=== PATIENT | female | born 1940 | race Caucasian/White ===

== ENCOUNTER 2017-06-16 08:48 | Outpatient (CLI) | payer MEDICARE, BC ==
[~2017-06-16 08:48] MED LIST: ALT5C PO; AMLO10TA4 PO; ATOR20TA66 PO; GLIM1TAB PO; INSU300I SQ; LINA5TAB4 PO; METF10002 PO
== END 2017-06-16 23:59 | disposition home or self-care (01) ==
LOC: RAD 08:48
PROVIDERS: ATTEND Family Medicine
DX: R10.9 Unspecified abdominal pain (principal); I10 Essential (primary) hypertension; E11.9 Type 2 diabetes mellitus without complications
CPT/HCPCS: 76700

== ENCOUNTER 2017-07-25 08:07 | Outpatient (CLI) | payer MEDICARE, BC ==
[~2017-07-25 08:07] MED LIST changes: -ALT5C PO; +RAMI5CAP PO
== END 2017-07-25 23:59 | disposition home or self-care (01) ==
LOC: DIABETIC 08:07
PROVIDERS: ATTEND Specialist
DX: E11.9 Type 2 diabetes mellitus without complications (principal)
CPT/HCPCS: G0108

== ENCOUNTER 2017-08-17 16:17 | Inpatient (IN) | payer MEDICARE, BC ==
[~2017-08-17] VITALS: Ht 162.6 cm; Wt 62.7 kg
[2017-08-17] MEDS ORDERED: normal saline 1000ML IV soln IVB ONE (17:20)
[2017-08-17] MEDS ORDERED: LIDOcaine 1.5% w/epinephrine 1:200,000 5ml ampul IJ ONE (17:25)
[2017-08-17 17:38] LABS: BASOPHILS # (AUTO) 0.1 X10'3 (0-0.2); BASOPHILS % (AUTO) 0.3 % (0-1); EOSINOPHILS # (AUTO) 0.2 X10'3 (0-0.9); EOSINOPHILS % (AUTO) 1.2 % (0-6); HEMATOCRIT 38.4 % (35.0-45.0); HEMOGLOBIN 13.3 g/dl (12.0-16.0); LYMPHOCYTES # (AUTO) 1.1 X10'3 (1.1-4.8); LYMPHOCYTES % (AUTO) 5.5 % (21-51); MEAN CORPUSCULAR HEMOGLOBIN 30.9 PG (27.0-31.0); MEAN CORPUSCULAR HGB CONC 34.6 % (33.0-36.5); MEAN CORPUSCULAR VOLUME 89.4 FL (78-98); MEAN PLATELET VOLUME 8.2 FL (7.4-10.4); PLATELET COUNT 320 X10'3 (140-440); RED BLOOD COUNT 4.29 X10'6 (4.20-5.60); RED CELL DISTRIBUTION WIDTH 13.4 % (11.5-14.5); WHITE BLOOD COUNT 19.3 X10'3 (4.5-11.0)
[2017-08-17] MEDS ORDERED: ondansetron/PF 4mg/2ml inj IV ONE (17:50)
[2017-08-17 18:01] LABS: ALANINE AMINOTRANSFERASE 42 U/L (12-78); ALBUMIN 3.6 G/DL (3.4-5.0); ALKALINE PHOSPHATASE 74 IU/L (46-116); ANION GAP 10 (8-16); ASPARTATE AMINO TRANSFERASE 29 U/L (10-37); BILIRUBIN,TOTAL 0.3 MG/DL (0.1-1.0); BLOOD UREA NITROGEN 21 MG/DL (7-18); BUN/CREATININE RATIO 15.8 (6.6-38.0); CALCIUM 9.2 MG/DL (8.5-10.1); CHLORIDE 100 MMOL/L (99-107); CREATININE 1.33 MG/DL (0.40-0.90); GLUCOSE 175 MG/DL (70-104); SODIUM 138 MMOL/L (135-145); TOTAL CARBON DIOXIDE 28.5 MMOL/L (24-32); TOTAL PROTEIN 7.3 G/DL (6.4-8.2); eGFR 39 ML/MIN
[2017-08-17] MEDS ORDERED: meclizine 12.5mg tablet PO ONE (18:05)
[2017-08-17] MEDS ORDERED: proCHLORperazine 10 MG/2 ml inj IV ONE (18:30)
[2017-08-17 18:43] LABS: TOTAL CELLS COUNTED 100
[2017-08-17 18:44] LABS: PLATELET ESTIMATE NORMAL
[2017-08-17] MEDS ORDERED: HYDR12.5 PO (19:57)
[2017-08-17] MEDS ORDERED: HUM7525 SQ (19:57)
[2017-08-17 22:06] LABS: UA COLLECTION TYPE STRAIGHT CATH
[2017-08-17 22:07] LABS: CLARITY,URINE CLEAR (Clear); COLOR,URINE STRAW (Yellow); GLUCOSE, URINE 100 mg/dl (Neg); KETONES,URINE 15 mg/dl (Neg); LEUKOCYTE ESTERASE ,URINE NEGATIVE (Neg); NITRITES, URINE NEGATIVE (Neg); OCCULT BLOOD,URINE NEGATIVE (Neg); PROTEIN,URINE NEGATIVE (Neg); UROBILINOGEN,URINE 0.2 E.U/dL (0.2-1.0)
[2017-08-18] MEDS ORDERED: normal saline 1000ml 1,000 ML IV SCH (03:41)
[2017-08-18] MEDS ORDERED: meclizine 12.5mg tablet PO PRN (03:45)
[2017-08-18] MEDS ORDERED: potassium Cl 40MEQ/NS 500ml 500 ML IV PRN ×2 (03:45)
[2017-08-18] MEDS ORDERED: mag hydrox/Alum hydrox/simeth 30ml oral suspension PO PRN (03:45)
[2017-08-18] MEDS ORDERED: ondansetron/PF 4mg/2ml inj IV PRN (03:45)
[2017-08-18] MEDS ORDERED: magnesium 2GM in 50ml NS 50 ML IV PRN (03:45)
[2017-08-18] MEDS ORDERED: magnesium hydroxide 30ml (MOM) UD suspension PO PRN (03:45)
[2017-08-18] MEDS ORDERED: potassium Cl 20 mEq SR tablet PO PRN ×2 (03:45)
[2017-08-18] MEDS ORDERED: magnesium 4gm in 100ml NS 100 ML IV PRN (03:45)
[2017-08-18] MEDS ORDERED: MESSAGE TO PHARMACY PO ONE ×2 (03:50→18:35)
[2017-08-18] MEDS ORDERED: dextrose ORAL solution 15 GM/59 ML bottle PO PRN ×4 (03:50→18:35)
[2017-08-18] MEDS ORDERED: dextrose 50%-water 50ml dispensing syringe IV PRN ×4 (03:50→18:35)
[2017-08-18] MEDS ORDERED: glucagon, human recombinant 1mg kit SUBCUT PRN ×2 (03:50→18:35)
[2017-08-18 06:07] LABS: BASOPHILS % (AUTO) 0.3 % (0-1); EOSINOPHILS # (AUTO) 0.2 X10'3 (0-0.9); EOSINOPHILS % (AUTO) 1.5 % (0-6); HEMATOCRIT 35.6 % (35.0-45.0); HEMOGLOBIN 12.1 g/dl (12.0-16.0); LYMPHOCYTES # (AUTO) 1.2 X10'3 (1.1-4.8); LYMPHOCYTES % (AUTO) 9.2 % (21-51); MEAN CORPUSCULAR HEMOGLOBIN 30.5 PG (27.0-31.0); MEAN CORPUSCULAR VOLUME 89.8 FL (78-98); MEAN PLATELET VOLUME 8.5 FL (7.4-10.4); MONOCYTES # (AUTO) 0.7 X10'3 (0-0.9); MONOCYTES % (AUTO) 5.5 % (2-12); NEUTROPHILS # (AUTO) 10.6 X10'3 (1.8-7.7); NEUTROPHILS % (AUTO) 83.5 % (42-75); PLATELET COUNT 301 X10'3 (140-440); RED BLOOD COUNT 3.96 X10'6 (4.20-5.60); RED CELL DISTRIBUTION WIDTH 13.6 % (11.5-14.5); WHITE BLOOD COUNT 12.6 X10'3 (4.5-11.0)
[2017-08-18 06:30] LABS: ALANINE AMINOTRANSFERASE 36 U/L (12-78); ALBUMIN 3.3 G/DL (3.4-5.0); ALKALINE PHOSPHATASE 74 IU/L (46-116); ANION GAP 9 (8-16); ASPARTATE AMINO TRANSFERASE 26 U/L (10-37); BILIRUBIN,TOTAL 0.3 MG/DL (0.1-1.0); BLOOD UREA NITROGEN 17 MG/DL (7-18); BUN/CREATININE RATIO 17.5 (6.6-38.0); CALCIUM 8.6 MG/DL (8.5-10.1); CHLORIDE 99 MMOL/L (99-107); CHOL/HDL RATIO 1.9 (0.00-4.99); CHOLESTEROL 144 MG/DL (0-200); CREATININE 0.97 MG/DL (0.40-0.90); GLUCOSE 287 MG/DL (70-104); HDL CHOLESTEROL 75 MG/DL (35-60); LDL CHOLESTEROL 58 MG/DL (50-100); POTASSIUM 4.2 MMOL/L (3.5-5.1); SODIUM 135 MMOL/L (135-145); TOTAL CARBON DIOXIDE 27.2 MMOL/L (24-32); TOTAL PROTEIN 6.7 G/DL (6.4-8.2); TRIGLYCERIDES 31 MG/DL (20-135); eGFR 56 ML/MIN
[2017-08-18 07:04] LABS: HEMOGLOBIN A1C 8.2 % (4.5-6.2)
[2017-08-18] MEDS ORDERED: HYDROchlorothiazide 12.5mg capsule PO SCH (08:00)
[2017-08-18] MEDS: K and/or MAG REPLACEMENT MC SCH (08:00)
[2017-08-18] MEDS ORDERED: atorvastatin 20mg tablet PO SCH ×2 (08:00→08:19)
[2017-08-18] MEDS ORDERED: RAMIPRIL 5 MG PO SCH (08:00)
[2017-08-18] MEDS: enoxaparin 40mg/0.4ml syringe SQ SCH (08:32)
[2017-08-18 12:45] VITALS: BP 168/89
[2017-08-18] MEDS: acetaminophen 325mg tablet PO PRN (13:30)
[2017-08-18] MEDS: insulin Lispro (HumaLOG) vial - multi-dose SQ SCH ×2 (14:31→19:58)
[2017-08-18 16:45] VITALS: BP 130/68
[2017-08-18 17:00] VITALS: BP_SYST 130; BP_SYST 160; BP_SYST 177; BP_DIAS 68; BP_DIAS 77; BP_DIAS 83
[2017-08-18 17:50] VITALS: BP 194/84
[2017-08-18] MEDS ORDERED: insulin Lispro (HumaLOG) vial - multi-dose SQ SCH (18:35)
[2017-08-18 20:00] VITALS: BP_SYST 169; BP_SYST 170; BP_SYST 176; BP_DIAS 79; BP_DIAS 83
[2017-08-18] MEDS: metoprolol tartrate 12.5mg (1/2 tablet) PO SCH (20:07)
[2017-08-18] MEDS ORDERED: insulin glargine (Lantus) pen - multi-dose SQ SCH ×2 (21:00)
[2017-08-18 22:00] VITALS: BP 163/88
[2017-08-19] MEDS: acetaminophen 325mg tablet PO PRN ×2 (01:29→07:49)
[2017-08-19 06:00] VITALS: BP 141/69
[2017-08-19 06:48] LABS: BASOPHILS # (AUTO) 0.1 X10'3 (0-0.2); BASOPHILS % (AUTO) 0.7 % (0-1); EOSINOPHILS # (AUTO) 0.1 X10'3 (0-0.9); EOSINOPHILS % (AUTO) 1.7 % (0-6); HEMATOCRIT 37.4 % (35.0-45.0); LYMPHOCYTES # (AUTO) 1.9 X10'3 (1.1-4.8); MEAN CORPUSCULAR HEMOGLOBIN 30.9 PG (27.0-31.0); MEAN CORPUSCULAR HGB CONC 34.9 % (33.0-36.5); MEAN CORPUSCULAR VOLUME 88.5 FL (78-98); MEAN PLATELET VOLUME 8.3 FL (7.4-10.4); MONOCYTES # (AUTO) 0.7 X10'3 (0-0.9); MONOCYTES % (AUTO) 8.7 % (2-12); NEUTROPHILS % (AUTO) 63.9 % (42-75); PLATELET COUNT 321 X10'3 (140-440); RED BLOOD COUNT 4.23 X10'6 (4.20-5.60); RED CELL DISTRIBUTION WIDTH 13.2 % (11.5-14.5); WHITE BLOOD COUNT 7.8 X10'3 (4.5-11.0)
[2017-08-19 06:59] LABS: ALBUMIN 3.3 G/DL (3.4-5.0); ANION GAP 9 (8-16); BLOOD UREA NITROGEN 14 MG/DL (7-18); BUN/CREATININE RATIO 14.7 (6.6-38.0); CHLORIDE 102 MMOL/L (99-107); CREATININE 0.95 MG/DL (0.40-0.90); GLUCOSE 70 MG/DL (70-104); MAGNESIUM 1.9 MG/DL (1.5-2.4); POTASSIUM 3.7 MMOL/L (3.5-5.1); SODIUM 139 MMOL/L (135-145); eGFR 58 ML/MIN
[2017-08-19] MEDS: metoprolol tartrate 12.5mg (1/2 tablet) PO SCH (07:38)
[2017-08-19] MEDS: enoxaparin 40mg/0.4ml syringe SQ SCH (07:39)
[2017-08-19 08:00] VITALS: BP_SYST 133; BP_SYST 137; BP_DIAS 73; BP_DIAS 86
[2017-08-19] MEDS: K and/or MAG REPLACEMENT MC SCH (08:00)
[2017-08-19] MEDS ORDERED: lisinopril 10 MG tablet PO SCH (08:17)
[2017-08-19] MEDS: insulin Lispro (HumaLOG) vial - multi-dose SQ SCH ×2 (09:32→14:25)
[2017-08-19 10:00] VITALS: BP 170/78
[2017-08-19] MEDS ORDERED: LORazepam 2 mg/ml vial IV ONE (13:25)
[2017-08-19] MEDS ORDERED: METO25TA6 PO (17:44)
[2017-08-19] MEDS ORDERED: ALPR-623 PO (17:44)
== END 2017-08-19 18:25 | disposition home or self-care (01) | DRG 40 ==
LOC: ER 16:17 → ED HOLD 08-18 03:41 → S STAY 08-18 13:01 → ORTHO 4S 08-18 18:02
PROVIDERS: ADMIT Family Medicine; ATTEND Family Medicine
PROC: 0JQ00ZZ Repair Scalp Subcutaneous Tissue and Fascia, Open Approach (ICD-10-PCS; principal; 2017-08-17)
PROC: 4A10X4Z Monitoring of Central Nervous Electrical Activity, External Approach (ICD-10-PCS; 2017-08-19)
DX: S06.0X9A Concussion with loss of consciousness of unspecified duration, initial encounter (principal); N17.0 Acute kidney failure with tubular necrosis; E11.649 Type 2 diabetes mellitus with hypoglycemia without coma; E11.22 Type 2 diabetes mellitus with diabetic chronic kidney disease; S01.01XA Laceration without foreign body of scalp, initial encounter; D72.829 Elevated white blood cell count, unspecified; E78.00 Pure hypercholesterolemia, unspecified; W18.39XA Other fall on same level, initial encounter; E78.5 Hyperlipidemia, unspecified; R00.0 Tachycardia, unspecified; F41.1 Generalized anxiety disorder; I12.9 Hypertensive chronic kidney disease with stage 1 through stage 4 chronic kidney disease, or unspecified chronic kidney disease; M47.812 Spondylosis without myelopathy or radiculopathy, cervical region; N18.9 Chronic kidney disease, unspecified; Z79.4 Long term (current) use of insulin; Z82.49 Family history of ischemic heart disease and other diseases of the circulatory system; Z87.820 Personal history of traumatic brain injury; Z87.891 Personal history of nicotine dependence; Z90.710 Acquired absence of both cervix and uterus; Z88.2 Allergy status to sulfonamides; Y93.89 Activity, other specified; Y92.89 Other specified places as the place of occurrence of the external cause; Y99.8 Other external cause status; Z79.899 Other long term (current) drug therapy
CPT/HCPCS: 12002; 36415; 70450; 70551; 71045; 72125; 80048; 80053; 80061; 81003; 82948; 83036; 83735; 84484; 85025; 87070; 93005; 93306; 93880; 95816; 96361; 96374; 96375; 97116; 97161; 97530; 99285; A6449; J0780; J1650; J1815; J2060; J2405; J3490; J7030; J8597

== ENCOUNTER 2017-11-01 00:34 | Outpatient (CLI) | payer MEDICARE, BC ==
[~2017-11-01 00:34] MED LIST changes: -AMLO10TA4 PO; -GLIM1TAB PO; +HUM7525 SQ; -LINA5TAB4 PO; -METF10002 PO; +METO25TA6 PO
== END 2017-11-01 23:59 | disposition home or self-care (01) ==
LOC: DIABETIC 00:34
PROVIDERS: ATTEND Specialist
DX: E11.9 Type 2 diabetes mellitus without complications (principal); I10 Essential (primary) hypertension
CPT/HCPCS: G0108

== ENCOUNTER 2018-02-10 04:28 | Outpatient (CLI) | payer MEDICARE, BC ==
[~2018-02-10 04:28] MED LIST changes: -RAMI5CAP PO; +RAMI5CAP65 PO
== END 2018-02-10 23:59 | disposition home or self-care (01) ==
LOC: DIABETIC 04:28
PROVIDERS: ATTEND Specialist
DX: E11.9 Type 2 diabetes mellitus without complications (principal); I10 Essential (primary) hypertension; Z79.84 Long term (current) use of oral hypoglycemic drugs; Z88.2 Allergy status to sulfonamides; Z79.4 Long term (current) use of insulin
CPT/HCPCS: G0108

== ENCOUNTER 2018-06-19 08:15 | Outpatient (CLI) | payer MEDICARE, BC | END 2018-06-19 23:59 | disposition home or self-care (01) | LOC: DIABETIC 08:15 | PROVIDERS: ATTEND Specialist | DX: E11.9 Type 2 diabetes mellitus without complications (principal); I10 Essential (primary) hypertension; Z79.84 Long term (current) use of oral hypoglycemic drugs; Z79.4 Long term (current) use of insulin; Z88.2 Allergy status to sulfonamides | CPT/HCPCS: G0108 ==

== ENCOUNTER 2018-09-20 01:01 | Outpatient (CLI) | payer MEDICARE, BC | END 2018-09-20 23:59 | disposition home or self-care (01) | LOC: DIABETIC 01:01 | PROVIDERS: ATTEND Specialist | DX: E11.9 Type 2 diabetes mellitus without complications (principal); I10 Essential (primary) hypertension; Z79.4 Long term (current) use of insulin; Z79.84 Long term (current) use of oral hypoglycemic drugs; Z79.899 Other long term (current) drug therapy; Z88.2 Allergy status to sulfonamides | CPT/HCPCS: G0108 ==

== ENCOUNTER 2018-12-25 02:37 | Outpatient (CLI) | payer MEDICARE, BC | END 2018-12-25 23:59 | disposition home or self-care (01) | LOC: DIABETIC 02:37 | PROVIDERS: ATTEND Specialist | DX: E11.9 Type 2 diabetes mellitus without complications (principal); I10 Essential (primary) hypertension; Z79.4 Long term (current) use of insulin; Z79.84 Long term (current) use of oral hypoglycemic drugs; Z79.899 Other long term (current) drug therapy; Z88.2 Allergy status to sulfonamides | CPT/HCPCS: G0108 ==

== ENCOUNTER 2024-07-05 09:37 | Outpatient (CLI) | payer MEDICARE, BC ==
[~2024-07-05 09:37] MED LIST changes: +LOP25T PO; -METO25TA6 PO; -RAMI5CAP65 PO; +RAMI5CAP71 PO
== END 2024-07-05 23:59 | disposition home or self-care (01) ==
LOC: RAD 09:37
PROVIDERS: ATTEND Nurse Practitioner
DX: M25.551 Pain in right hip (principal); M25.511 Pain in right shoulder
CPT/HCPCS: 73030; 73502

== ENCOUNTER 2024-12-06 10:27 | Outpatient (CLI) | payer MEDICARE, BC ==
[~2024-12-06 10:27] MED LIST changes: +HYDR25TA4 PO; +Insulin Pump SQ; -LOP25T PO; +METO-384 PO
--- NOTE | 2024-12-06 14:31 | RADIOLOGY REPORT ---
EXAM: DI FACIAL BONES,3VW MIN CLINICAL INDICATION: S/P FALL, LT CHEEK TENDERNESS TECHNIQUE: DI FACIAL BONES,3VW MIN Comparison: CT CT FACIAL BONES/SOFT TISSUE on DOS: 09/25/24 FINDINGS/IMPRESSION: There is no evidence of acute fracture or dislocation. The visualized joint space is well maintained. The alignment is anatomical. There is no radiopaque foreign body.
== END 2024-12-06 23:59 | disposition home or self-care (01) ==
LOC: RAD 10:27
PROVIDERS: ATTEND Family Medicine
DX: G50.1 Atypical facial pain (principal)
CPT/HCPCS: 70150